=== PATIENT | female | born 1940 | race Caucasian/White ===

== ENCOUNTER 2017-11-10 20:01 | Emergency (ER) | payer OTHER, BC ==
[~2017-11-10] VITALS: Ht 162.6 cm; Wt 72.3 kg
[~2017-11-10 20:01] MED LIST: ACIDOPHILUS1 EAC4 PO; ASPIR-LOW81 MG PO; CALCIUM 500 MG1 EAC1 PO; GLUCOSAMINE-CH1 EA14 PO; IRON18 MG PO; LISINOPRIL10 MG PO; NITROSTAT0.4 MG SL; PRAVASTATIN SOD40 MG PO; PROBIOTIC1 EAC2 PO; VITAMIN B-625 MG PO; VITAMIN B12 100MCG PO; VITAMIN D2000 UNI1 PO
[2017-11-10 20:44] LABS: APPEARANCE CLEAR ((CLEAR)); BILIRUBIN NEGATIVE; BLOOD NEGATIVE; GLUCOSE (STRIP) NEGATIVE; KETONES NEGATIVE; LEUKOCYTES MODERATE; NITRITE POSITIVE; PROTEIN (STRIP) NEGATIVE; SPECIFIC GRAVITY 1.014 (1.000-1.030)
[2017-11-10 20:57] LABS: BACTERIA RARE /HPF; EPITHELIAL CELLS RARE /HPF; MUCUS NONE SEEN /LPF; RED BLOOD CELLS 0-5 /HPF (0-5); UCUL ADDED? YES; WHITE BLOOD CELLS TNTC /HPF (0-5)
[2017-11-10 20:58] LABS: HEMATOCRIT 36.1 % (36.0-46.0); HEMOGLOBIN 12.3 G/DL (11.9-15.5); MCH 31.5 PG (29.0-34.0); MCHC 34.1 G/DL (30.0-36.0); MCV 92.6 FL (83-99); PLATELET COUNT 218 K/uL (156-360); RBC DIS.WIDTH-CV 12.6 % (11.8-14.6); RBC DIS.WIDTH-SD 42.5 % (39-53); WHITE BLOOD COUNT 5.7 K/uL (4.1-10.2)
[2017-11-10 20:58] LABS: COLOR DK YELLOW ((YELLOW))
[2017-11-10 21:08] LABS: ALBUMIN 4.4 g/dL (3.2-4.8)
[2017-11-10 21:09] LABS: CHLORIDE 102 mEq/L (99-109); POTASSIUM 3.8 mEq/L (3.7-5.4); SODIUM 139 mEq/L (136-147)
[2017-11-10 21:11] LABS: GLUCOSE 123 mg/dL (70-99); TOTAL PROTEIN 7.1 g/dL (6.4-8.3)
[2017-11-10 21:13] LABS: TOTAL BILIRUBIN 0.9 mg/dL (0.0-1.0)
[2017-11-10 21:14] LABS: ALKALINE PHOSPHATASE 67 IU/L (3-129)
[2017-11-10 21:15] LABS: CREATININE 0.9 mg/dL (0.6-1.3); GFR ESTIMATE (CALCULATED) > 59 mL/min/
[2017-11-10 21:16] LABS: AST (GOT) 19 IU/L (2-34); UREA NITROGEN (BUN) 16 mg/dL (9-23)
[2017-11-10 21:18] LABS: ALT (GPT) 31 IU/L (3-49)
[2017-11-11] MEDS ORDERED: NORCO 5/3251 TABLET PO (02:18)
[2017-11-11] MEDS ORDERED: ZOFRAN ODT8 MG PO (02:18)
[2017-11-11] MEDS ORDERED: KEFLEX500 MG PO (02:18)
[2017-11-11] MEDS ORDERED: ZANTAC300 MG PO (02:18)
[2017-11-11] MEDS ORDERED: VENTOLIN HFA18 GM IH (02:19)
[2017-11-11 02:56] VITALS: BP 130/63
== END 2017-11-11 02:54 | disposition home or self-care (01) ==
LOC: EME 20:01
DX: N39.0 Urinary tract infection, site not specified (principal); K29.70 Gastritis, unspecified, without bleeding; J20.9 Acute bronchitis, unspecified; R03.0 Elevated blood-pressure reading, without diagnosis of hypertension; K44.9 Diaphragmatic hernia without obstruction or gangrene; K76.0 Fatty (change of) liver, not elsewhere classified; Z90.710 Acquired absence of both cervix and uterus; Z85.828 Personal history of other malignant neoplasm of skin; Z87.891 Personal history of nicotine dependence; Z88.0 Allergy status to penicillin
CPT/HCPCS: 71275; 74177; 80053; 81003; 83605; 85027; 87040; 87086; 99281; 99285; J0696; J2405; J3010; J7030